=== PATIENT | female | born 2005 | race Caucasian/White ===

== ENCOUNTER 2025-04-30 06:16 | Day surgery (SDC) | payer OTHER, SELFPAY ==
[2025-04-30] VITALS (10 sets, daily range): BP systolic 83–110; BP diastolic 46–68; BMI 27.4
[2025-04-30] MEDS: NORMOSOL-R/PLASMALYTE-A 1000 IV (08:05)
[2025-04-30] MEDS: DILAUDID 0.25 MG IV (09:59)
[2025-04-30] MEDS: MOTRIN 600 MG PO (10:59)
[2025-04-30] MEDS: ROXICODONE 5 MG PO (10:59)
== END 2025-04-30 11:06 | disposition home or self-care (01) ==
LOC: SDS 06:16
PROVIDERS: ATTENDING PHYSICIAN Otolaryngology
DX: S02.2XXA Fracture of nasal bones, initial encounter for closed fracture (principal); X58.XXXA Exposure to other specified factors, initial encounter; J34.3 Hypertrophy of nasal turbinates
CPT/HCPCS: 21320; 30802